=== PATIENT | female | born 1970 ===

== ENCOUNTER 2023-09-18 15:16 | Outpatient (OUT) | payer OTHER, SELFPAY ==
[2023-09-18 16:53] LABS: Glucose CSF 125 mg/dL (40-70); Total Protein CSF 41 mg/dL (15-45)
[2023-09-18 16:58] LABS: Glucose CSF 125 mg/dL (40-70); Total Protein CSF 37 mg/dL (15-45)
[2023-09-18 17:03] LABS: CSF Clarity CLEAR (CLEAR); CSF Color COLORLESS (COLORLESS); CSF Total Volume 14 mL; CSF Tube # 2; Red Blood Cell CSF 0 cubic mm (0-0); Red Blood Cell CSF Side 1 0; Red Blood Cell CSF Side 2 0; White Blood Cell CSF 1 cubic mm (0-5); White Blood Cell CSF Side 1 1; White Blood Cell CSF Side 2 1
[2023-09-18 17:14] LABS: CSF Clarity CLEAR (CLEAR); CSF Color COLORLESS (COLORLESS); CSF Total Volume 14 mL; CSF Tube # 4; White Blood Cell CSF 3 cubic mm (0-5); White Blood Cell CSF Side 1 4; White Blood Cell CSF Side 2 3
[2023-09-18 17:15] LABS: Red Blood Cell CSF 1 cubic mm (0-0); Red Blood Cell CSF Side 1 1; Red Blood Cell CSF Side 2 1
[2023-09-22 12:08] LABS: Albumin 3.8 g/dL (2.9-4.4); Alpha-1-Globulin 0.3 g/dL (0.0-0.4); Alpha-2-Globulin 0.7 g/dL (0.4-1.0); Gamma Globulin 0.7 g/dL (0.4-1.8); Immunoglobulin A, Qn, Serum 165 mg/dL (87-352); Immunoglobulin G, Qn, Serum 787 mg/dL (586-1602); Immunoglobulin M, Qn, Serum 84 mg/dL (26-217); Protein, Total 6.7 g/dL (6.0-8.5)
== END 2023-09-18 15:17 | disposition home or self-care (01) ==
LOC: LAB 15:20
PROVIDERS: PCP Family Medicine; Visit Provider Psychiatry & Neurology Neurology
DX: H46.9 Unspecified optic neuritis (principal)
CPT/HCPCS: 36415; 82040; 82042; 82164; 82784; 82945; 83873; 83916; 84155; 84157; 84165; 84166; 86334; 86335; 86617; 87070; 87075; 87205; 89050